=== PATIENT | female | born 1990 | race Caucasian/White ===

== ENCOUNTER 2018-07-08 17:03 | Emergency (ER) | payer SELFPAY ==
[2018-07-08 17:12] VITALS: BP 141/92
[2018-07-08] MEDS ORDERED: IBUPROFEN 800 MG TABLET PO STA (17:20)
[2018-07-08] MEDS ORDERED: AZITHROMYCIN 250 MG TABLET PO STA (17:38)
--- NOTE | 2018-07-08 17:40 | ED Physician Documentation ---
PD HPI HEENT - Stated complaint Stated Complaint: SORE THROAT/F/GOMEZ - Chief complaint Chief Complaint: Heent - History obtained from History obtained from: Patient - History of Present Illness Timing - onset: How many days ago (4) Timing - duration: Days (4) Timing - details: Gradual onset, Still present Location: Throat Worsens: Swalllowing Associated symptoms: Fever, Swollen nodes, Headache Similar symptoms before: Has not had sx before - Additional information Additional information: The patient is a 28-year-old female who presents with sore throat of 4 days duration. She reports increasing discomfort with swallowing. She reports associated fever, generalized headache, and slight cough. She denies earache, shortness of breath, nausea or vomiting. She denies history of similar symptoms in the past. Review of Systems Constitutional: reports: Fever Eyes: denies: Irritation Ears: denies: Ear pain Nose: denies: Congestion Throat: reports: Sore throat Cardiac: denies: Chest pain / pressure Respiratory: reports: Cough (slight). denies: Dyspnea GI: denies: Abdominal Pain, Nausea, Vomiting : denies: Dysuria Skin: denies: Rash Musculoskeletal: denies: Back pain Neurologic: reports: Headache PD PAST MEDICAL HISTORY - Past Medical History Respiratory: Asthma Neuro: Headaches - Past Surgical History HEENT: Tonsil/Adenoidectomy - Present Medications Home Medications: Ambulatory Orders Medication Instructions Recorded Confirmed Azithromycin [Zithromax] 0 mg PO DAILY #6 tablet 07/08/18 - Allergies Allergies/Adverse Reactions: Allergies Allergy/AdvReac Type Severity Reaction Status Date / Time Cephalosporins Allergy Hives Verified 07/08/18 17:12 Penicillins Allergy Hives Verified 07/08/18 17:12 - Social History Does the pt smoke?: No Smoking Status: Never smoker Does the pt drink ETOH?: No Does the pt have substance abuse?: No PD ED PE NORMAL - Vitals Vital signs reviewed: Yes (Initially hypertensive.) - General General: Alert and oriented X 3, Other (Morbidly obese.) - HEENT HEENT: Atraumatic, EOMI, Ears normal, Other (Oropharynx is diffusely erythematous with exudates bilaterally. Tonsils have been surgically removed. There is no peritonsillar swelling.) - Neck Neck: Supple, no meningeal sign, Other (Enlarged anterior cervical nodes bilaterally.) - Cardiac Cardiac: RRR, No murmur - Respiratory Respiratory: No respiratory distress, Clear bilaterally - Abdomen Abdomen: Soft, Non tender - Derm Derm: No rash - Neuro Neuro: Alert and oriented X 3, No motor deficit Results - Vitals Vitals: Vital Signs - 24 hr 07/08/18 17:10 Temperature 36.3 C L Heart Rate 128 H Respiratory 18 Rate Blood Pressure 141/92 H O2 Saturation 95 Oxygen O2 Source Room air - Labs Labs: Laboratory Tests 07/08/18 17:15 Group A Strep Rapid Negative PD MEDICAL DECISION MAKING - ED course Complexity details: reviewed results, re-evaluated patient, considered differential, d/w patient, d/w family ED course: The patient's presentation is significant for acute pharyngitis. Rapid strep screen is negative, but due to the severity of her symptoms and exam, she will be treated with antibiotics pending results of throat culture. There is no clinical evidence of peritonsillar abscess. Treatment in the emergency department included administration of ibuprofen 800 mg orally, and Zithromax 500 mg orally (due to penicillin and cephalosporin allergies). She is being discharged with prescription for Zithromax. I discussed with her and her the expected course of illness, antibiotic treatment and outpatient follow-up, as well as potentially worrisome signs or symptoms that should prompt reevaluation in the emergency department. Departure - Departure Disposition: 01 Home, Self Care Clinical Impression: Acute pharyngitis, unspecified Qualifiers: Pharyngitis/tonsillitis etiology: unspecified etiology Qualified Code(s): J02.9 - Acute pharyngitis, unspecified Condition: Stable Instructions: ED Strep Pharyngitis Poss Follow-Up: [facility] [Provider Group] Prescriptions: Azithromycin [Zithromax] 0 mg PO DAILY #6 tablet Comments: Gargle with cool liquids. Take Zithromax daily as prescribed. You can use ibuprofen, up to 800 mg 3 times daily for its anti-inflammatory effect. Follow-up with primary physician within 2 weeks if possible. Call to schedule an appointment. Return to the emergency department if you develop increasing difficulty swallowing, or otherwise worsening symptoms. Discharge Date/Time: 07/08/18 17:48
== END 2018-07-08 17:48 | disposition home or self-care (01) ==
LOC: ED 17:03
DX: J02.9 Acute pharyngitis, unspecified (principal)
CPT/HCPCS: 87070; 87430; 99283; A9270